=== PATIENT | female | born 1985 | race Native Hawaiian/Other Pacific Islander ===

== ENCOUNTER 2021-10-31 15:40 | Outpatient (CLI) | payer OTHER | END 2021-10-31 21:37 | disposition home or self-care (01) | LOC: US 15:40 | PROVIDERS: ATTEND Nurse Practitioner Family | DX: Z32.01 Encounter for pregnancy test, result positive (principal) ==

== ENCOUNTER 2021-12-14 13:49 | Outpatient (CLI) | payer OTHER | END 2021-12-14 19:29 | disposition home or self-care (01) | LOC: US 13:49 | PROVIDERS: ATTEND Nurse Practitioner Family | DX: O02.1 Missed abortion (principal) ==

== ENCOUNTER 2022-01-28 14:04 | Outpatient (CLI) | payer OTHER | END 2022-01-28 19:03 | disposition home or self-care (01) | LOC: CT 14:04 | PROVIDERS: ATTEND Nurse Practitioner Family | DX: R10.32 Left lower quadrant pain (principal) | CPT/HCPCS: Q9963 ==